=== PATIENT | female | born 2000 | race Caucasian/White ===

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

== ENCOUNTER 2019-01-06 21:21 | Observation (INO) | payer OTHER ==
[2019-01-06] MEDS ORDERED: Ketorolac INJ* 30 MG/ML 1 ML VIAL IV PUSH ONE (21:40)
--- NOTE | 2019-01-06 21:45 | ED ---
HPI Chest Pain - HPI Summary HPI Summary: This patient is a 18 year old female [facility] by friends with a chief complaint of rib and chest pain since 30 minutes ago. Patient states that she has had costochondritis for a long time now, but that it has not bothered her immensely. The pain usually lasts for one or two breaths and improves. However, today, patient notes that the pain is ongoing, pleuritic, and persisting. Pain was sudden onset and began while patient was sitting in bed. The pain is rated 6/10 in severity. Symptoms aggravated by nothing. Symptoms alleviated by nothing. Patient additionally notes back pain. - History of Current Complaint Time Seen by Provider: 01/06/19 21:35 Hx Obtained From: Patient Hx Last Menstrual Period: 11/19/18 Onset/Duration: Still Present Timing: Constant Current Severity: Moderate Pain Intensity: 6 Pain Scale Used: 0-10 Numeric Chest Pain Location: Mid Sternal Chest Pain Radiates: Yes Chest Pain Radiates To:: Back Aggravating Factor(s): Nothing Alleviating Factor(s): Nothing Associated Signs and Symptoms: Positive: Other: - back pain - Allergy/Home Medications Allergies/Adverse Reactions: Allergies Allergy/AdvReac Type Severity Reaction Status Date / Time No Known Allergies Allergy Verified 01/06/19 21:39 Home Medications: Home Medications Robaxin 500 MG TAB* 1,000 mg PO SEE INSTRUCTIONS PRN 01/07/19 [History Confirmed 01/07/19] PMH/Surg Hx/FS Hx/Imm Hx Previously Healthy: No Endocrine/Hematology History: Denies: Hx Diabetes Cardiovascular History: Reports: Other Cardiovascular Problems/Disorders - slightly dilated descending aorta, last ECHO 08/2018, Marfanoid traits Denies: Hx Hypertension Respiratory History: Denies: Hx Asthma Musculoskeletal History: Reports: Other Musculoskeletal History - Marfanoid sx Sensory History: Reports: Hx Contacts or Glasses Opthamlomology History: Reports: Hx Contacts or Glasses - Surgical History Surgery Procedure, Year, and Place: None reported Infectious Disease History: No Infectious Disease History: Denies: Traveled Outside the [place] in Last 30 Days - Family History Known Family History: Positive: Other - Marfan syndrome, father of aortic dissection at age 31 - Social History Occupation: Student Lives: Dormitory/Roommates Alcohol Use: None Hx Substance Use: No Substance Use Type: Reports: None Hx Tobacco Use: No Smoking Status (MU): Never Smoked Tobacco Review of Systems Negative: Fever Positive: Chest Pain Positive: Other - rib pain All Other Systems Reviewed And Are Negative: Yes Physical Exam - Summary Physical Exam Summary: Appearance: Well-appearing, Well-nourished, lying in bed comfortably Skin: Warm, dry, no obvious rash Eyes: sclera anicteric, no conjunctival pallor ENT: mucous membranes moist, pharynx appears normal Neck: Supple, nontender Respiratory: Clear to auscultation, no signs of respiratory distress Cardiovascular: Normal S1, S2. No murmurs. Normal distal pulses in tibial and radial bilaterally. Abdomen: Soft, nontender, normal active bowel sounds present Musculoskeletal: Left sided costochondral tenderness Neurological: A&Ox3, awake and alert, mentation is normal, speech is fluent and appropriate Psychiatric: affect is normal, appears mildly apprehensive, but no acute distress Triage Information Reviewed: Yes Vital Signs On Initial Exam: Initial Vitals Pulse Resp BP Pulse Ox 97 19 122/76 100 01/06/19 21:35 01/06/19 21:35 01/06/19 21:35 01/06/19 21:35 Vital Signs Reviewed: Yes Diagnostics - Vital Signs Vital Signs Temp Pulse Resp BP Pulse Ox 01/06/19 21:36 100.6 F 96 22 122/76 100 01/06/19 21:35 97 19 122/76 100 - Laboratory Result Diagrams: 01/06/19 21:50 01/06/19 21:50 Lab Statement: Any lab studies that have been ordered have been reviewed, and results considered in the medical decision making process. - Radiology CXR Radiology Interpretation Completed By: ED Physician Summary of Radiographic Findings: CXR reveals, per ED physician, scoliosis, but no acute process in chest. Pending official report. - CT CTA Chest/Thorax CT Interpretation Completed By: Radiologist Summary of CT Findings: CTA Chest/Thorax reveals, per radiologist, IMPRESSION: Small volume pulmonary emboli burden to the segmental level with associated inferior lingular pulmonary infarct and small left effusion. No right heart strain. ED physician has reviewed this radiology report. - EKG 2130 Cardiac Rate: NL EKG Rhythm: Sinus Rhythm - 78 BPM Summary of EKG Findings: An EKG, taken 2130, reveals NSR (78 BPM), P waves, QRS complex, and T waves are within normal limits, T waves and intervals are normal , no ischemic changes. This is a normal EKG. Chest Pain Course/Dx - Course Course Of Treatment: This patient is a 18 year old female presenting to [facility] accompanied by friends with a chief complaint of rib and chest pain since 30 minutes ago. Patient states that she has had costochondritis for a long time now , but that it has not bothered her immensely. The pain usually lasts for one or two breaths and improves. However, today, patient notes that the pain is ongoing and persisting. An EKG, taken 2130, reveals NSR (78 BPM), P waves, QRS complex, and T waves are within normal limits, T waves and intervals are normal , no ischemic changes. This is a normal EKG. CXR reveals, per ED physician, scoliosis, but no acute process in chest. Pending official report. CTA Chest/ Thorax reveals, per radiologist, IMPRESSION: Small volume pulmonary emboli burden to the segmental level with associated inferior lingular pulmonary infarct and small left effusion. No right heart strain. ED physician has reviewed this radiology report. Bloodwork Obtained. We discussed patient care with Dr. Patterson (Hospitalist) at 0050 and they agreed to admit the patient. Patient will be admitted with a dx of pulmonary emboli. The patient is agreeable with this plan. - Diagnoses Provider Diagnoses: Pulmonary emboli - Provider Notifications Discussed Care Of Patient With: Marino Patterson - Hospitalist Time Discussed With Above Provider: 00:50 - . We discussed patient care with Dr. Patterson (Hospitalist) at 0050 and they agreed to admit the patient. Discharge - Sign-Out/Discharge Documenting (check all that apply): Patient Departure Patient Received Moderate/Deep Sedation with Procedure: No - Discharge Plan Condition: Stable Disposition: ADMITTED TO [facility] Referrals: No Primary Care Phys,NOPCP [Primary Care Provider] - - Attestation Statements Document Initiated by Scribe: Yes Documenting Scribe: Erica Mckenzie Provider For Whom Tavia is Documenting (Include Credential): Nir Holt MD Scribe Attestation: Erica Robertson, scribed for Nir Holt MD on 01/07/19 at 0128. Status of Scribe Document: Ready
[2019-01-06 22:04] LABS: ABS Lymphocytes 1.4 10^3/ul (1.0-4.8); ABS Monocytes 0.9 10^3/ul (0-0.8); ABS Neutrophils 3.7 10^3/ul (1.5-7.7); Eosinophil % 0.3 %; Hematocrit 36 % (35-47); Hemoglobin 12.4 g/dL (12.0-16.0); Lymphocyte % 23.1 %; Mean Corpuscular HGB Conc 34 g/dL (31-36); Mean Corpuscular Hemoglobin 30 pg (27-31); Mean Corpuscular Volume 89 fL (80-97); Platelet Count 174 10^3/uL (150-450); Red Blood Count 4.06 10^6 /uL (3.70-4.87); Red Cell Distribution Width 13 % (10.5-15)
[2019-01-06 22:15] LABS: ALT 9 U/L (7-52); AST 15 U/L (13-39); Albumin 4.3 g/dL (3.2-5.2); Albumin/Globulin Ratio 1.5 (1-3); Alkaline Phosphatase 45 U/L (34-104); Anion Gap 7 mmol/L (2-11); BUN/Creatinine Ratio 14.3 (8-20); Blood Urea Nitrogen 9 mg/dL (6-24); CO2 Carbon Dioxide 24 mmol/L (22-32); Calcium 9.5 mg/dL (8.6-10.3); Chloride 105 mmol/L (101-111); EGFR African American 147.3 (>60); EGFR Non-African American 121.7 (>60); Globulin 2.9 g/dL (2-4); Glucose 91 mg/dL (70-100); Potassium 3.8 mmol/L (3.5-5.0); Sodium 136 mmol/L (135-145); Total Protein 7.2 g/dL (6.4-8.9)
[2019-01-06 22:22] LABS: HCG Pregnancy < 0.60 mIU/mL
[2019-01-06] MEDS ORDERED: Iohexol 350* (CONTRAST) 500 ML MDV IV ONE (23:24)
[2019-01-07] MEDS ORDERED: Acetaminophen TAB* 325 MG PO PRN (01:00)
[2019-01-07] MEDS ORDERED: Enoxaparin(*) 60 MG/0.6 ML SYR SUBCUT SCH (01:00)
--- NOTE | 2019-01-07 03:53 | HP ---
History of Present Illness - History of Present Illness Reason for Visit: chest pain History of Present Illness: PCP: [facility] HPI: Patient is a 18 year old [employer] student with Marfan's syndrome, who has had intermittent fleeting left-sided chest pain for about 1 month. The pain is rated around 8/10, but lasts just a few seconds, can be relieved by a deep breath. She describes it as sharp, stabbing. The day of admission she had the same pain, but it persisted for 30 minutes, had no relieving factors. Her roommate convinced her to come to the ER. She was in the ER on 11/22 with a different chest pain, burning, precordial. She was concerned about aortic dissection and had a negative CTA chest at that time. Patient denies any family history of DVT/PE. She does endorse long bus rides, as she is on the crew team at , is traveling to meets all over the [facility]. - Past Medical History Cardiac: Other - Marfan's syndrome Psych: Depression, Other - ADD Musculoskeletal: Other - scoliosis Grav: 0 Para: 0 - Past Surgical History Past Surgical History: None - Past Family History Family History: Other - Father age 31 of TAA/Marfan's, mother is well, only child - Past Social History Occupation: student at , anthropology Alcohol: Occassional - none for few months, in "dry season" Drugs: None Lives: Roommate, Other - Mother is Gisela, she is a PA in [place] Domestic Violence: Negative Review of Systems - Measurements Intake and Output: Intake and Output Last 24 Hours 01/04/19 01/05/19 01/06/19 01/07/19 06:59 06:59 06:59 06:59 Weight 65.771 kg - Review of Systems Constitutional Symptoms: Negative: Weight Gain, Fever Dermatology: Positive: Normal HEENT: Positive: Normal Eyes: Positive: Normal Thyroid: Positive: Normal Pulmonary: Negative: Cough, Hemoptysis, Shortness of Breath Cardiology: Positive: Chest Pain Negative: Shortness of Breath, Palpitations, Peripheral Vascular Dis, Edema, Claudication Gastroenterology: Positive: Normal Genital - Urinary: Positive: Normal Genitourinay - Female: Positive: Menses Normal, Other - IUD placed 1 year ago Musculoskeletal: Positive: Joint Pain Endocrinology: Positive: Normal Hematologic/Lymphatic: Negative: Use of Anticoagulant Neurology: Positive: Normal Psychiatry: Positive: Normal Allergic/Immunologic: Negative: Hx Anaphylaxis Objective Active Medications: Acetaminophen (Tylenol Tab*) 650 mg PO Q4H PRN PRN Reason: FEVER/HEADACHE Amphetamine/Dextroamphetamine (Adderall Tab*) 10 mg PO DAILY RK Fluoxetine HCl (Prozac Cap*) 60 mg PO DAILY RK Losartan Potassium (Cozaar Tab*) 12.5 mg PO DAILY RK IUD - Kyleena Vital Signs - 8 hr 01/06/19 01/06/19 01/06/19 22:05 22:35 23:00 Temperature Pulse Rate 76 76 73 Respiratory 24 17 24 Rate Blood Pressure 113/71 112/68 (mmHg) O2 Sat by Pulse 98 97 96 Oximetry 01/06/19 01/06/19 01/07/19 23:05 23:36 02:03 Temperature 37.7 C Pulse Rate 69 79 Respiratory 29 22 Rate Blood Pressure 110/59 110/66 (mmHg) O2 Sat by Pulse 98 99 Oximetry 01/07/19 02:51 Temperature 37.0 C Pulse Rate 75 Respiratory 17 Rate Blood Pressure 107/64 (mmHg) O2 Sat by Pulse 98 Oximetry Oxygen Devices in Use Now: None Appearance: alert, no distress Eyes: No Scleral Icterus Ears/Nose/Mouth/Throat: NL Teeth, Lips, Gums Neck: NL Appearance and Movements; NL JVP, Trachea Midline Respiratory: Symmetrical Chest Expansion and Respiratory Effort, Clear to Auscultation Cardiovascular: NL Sounds; No Murmurs; No JVD, RRR Abdominal: NL Sounds; No Tenderness; No Distention, No Hepatosplenomegaly Lymphatic: No Cervical Adenopathy Extremities: No Edema Skin: No Rash or Ulcers Neurological: Alert and Oriented x 3, NL Sensation, NL Muscle Strength and Tone , - - scoliosis present Lines/Tubes/Other Access: Clean, Dry and Intact Peripheral IV Nutrition: Taking PO's Result Diagrams: 01/06/19 21:50 01/06/19 21:50 Additional Lab and Data: Laboratory Tests 01/06/19 01/06/19 01/06/19 21:50 21:50 21:50 D-Dimer, Quantitative 240 H Glucose 91 Lactic Acid 0.7 AST 15 ALT 9 Troponin I 0.00 Albumin 4.3 Beta HCG, Quant < 0.60 Diagnostic Imaging: CTA chest: several small PEs in LLL, pulmonary infarct in lingula Assess/Plan/Problems-Billing Assessment: 18 year old with pulmonary embolism and infarction - Patient Problems (1) Pulmonary embolism and infarction Current Visit: Yes Status: Acute Priority: High Code(s): I26.99 - OTHER PULMONARY EMBOLISM WITHOUT ACUTE COR PULMONALE SNOMED Code(s): 2339365782156 Comment: -Patient will be admitted to observation, assessed for any cardiopulmonary instability -Started on Lovenox, can be discharged in <24 hours on Eliquis BID if stable -No clear inciting factor, though estrogen-containing IUD should be removed. Long bus trips are also a factor -Sent testing for Factor V Leiden, Prothrombin 35216 gene mutation, Protein S, Protein C, AT3. -Advised to see business relationship manager in [facility] in 1-2 months, consider stopping anticoagulation in 3-6 months (2) IUD complication Current Visit: Yes Status: Acute Priority: Medium Code(s): T83.9XXA - UNSP COMPLICATION OF GENITOURINARY PROSTH DEV/GRFT, INIT SNOMED Code(s): 055049178 Comment: -Can have IUD removed in 3-4 weeks, at home in [facility], or at [facility] (3) Marfan syndrome Current Visit: Yes Status: Acute Priority: Low Code(s): Q87.40 - MARFAN'S SYNDROME, UNSPECIFIED SNOMED Code(s): 13432555 Comment: -I do not see any connection between the PE and Marfan's Counseling and/or Coordination of Care Minutes: Spoke with mother at
[2019-01-07] MEDS ORDERED: FLUoxetine CAP* 20 MG PO SCH (09:00)
[2019-01-07] MEDS ORDERED: Amphetamine MIXED SALT TAB* 10 MG TAB PO SCH (09:00)
[2019-01-07] MEDS ORDERED: Losartan TAB* 25 MG PO SCH (09:00)
[2019-01-07] MEDS ORDERED: Apixaban* 5 MG TAB PO SCH (09:31)
[2019-01-07] MEDS ORDERED: Ketorolac INJ* 15 MG/ML 1 ML VIAL IV PUSH ONE (09:32)
[2019-01-07 14:47] VITALS: BP 108/67
--- NOTE | 2019-01-07 22:45 | DS ---
CC: Dr. Mandeep Warren * DISCHARGE SUMMARY: DATE OF ADMISSION: 01/07/19 DATE OF DISCHARGE: 01/07/19 PRIMARY CARE PROVIDER: Dr. Mandeep Warren, [place], [place]. ATTENDING PHYSICIAN: Kendra Samuels MD * (dictated by Debbie Monroy NP). PRIMARY DIAGNOSIS: Pulmonary embolism. SECONDARY DIAGNOSES: 1. Marfan syndrome. 2. Presence of intrauterine device. STUDIES WHILE IN THE HOSPITAL: 1. EKG on 01/06/19 shows normal sinus rhythm with a rate of 78, QTc 425. No ischemic changes. 2. Chest x-ray on 01/06/19 reads as possible small focal pneumonia at the inferior most aspect of the left upper lobe. S-shaped scoliosis. 3. Chest-thorax CTA on 01/06/19 reads as small volume pulmonary emboli burden to the segmental level with associated inferior lingular pulmonary infarct and small left effusion. No right heart strain. HISTORY OF PRESENT ILLNESS AND HOSPITAL COURSE: Ms. Ladd is a 18-year-old female with past medical history of Marfan syndrome, who presented to the emergency room on 01/06/19 with complaints of chest pain. Please see the history and physical by Dr. Patterson for a complete summary of the events leading up to this hospitalization. In short, the patient is a student at [employer], originally from [place]. She had reported intermittent chest pain for approximately 1 month. The pain is typically an 8/10, lasting just a few seconds , though on the day of admission the pain lasted 30 minutes, hence her presenting to the emergency room. In the emergency room, she had a CBC and BMP which were unremarkable. She had a D-dimer which was elevated at 240 and for that reason and her heart symptomatology, CTA was completed as noted above, which revealed small burden PE. The patient was admitted by the hospitalist service. She was started on therapeutic dosing of Lovenox. A hypercoagulability workup was sent out and is pending at the time of this dictation. The patient was monitored in telemetry overnight, without any evidence of arrhythmias and vital signs remained stable. The patient did receive a dose of Toradol in the emergency room, which was quite effective at relieving her pain. When I spoke with the patient this morning, she reported that she still had pain with movement, although was comfortable while sitting and speaking with me. She does note that the pain today has significantly improved from the pain yesterday. During the most painful episode yesterday, she reports that she was unable to speak because she was in so much pain and overall she felt much better. The patient is anxious to be discharged from the hospital as she is a student at [employer] and this week is the finals week. I did speak at length with the patient about her diagnosis and the need for anticoagulation. The patient was agreeable to starting oral anticoagulation at this time. There was some concern on admission due to the presence of a hormonal IUD. At this point, I cannot find any evidence linking IUD to thrombotic events, though I did discuss this with the patient that ultimately the IUD may need to be removed. She did not want it removed at this time. The patient's mother resides in [place] and is a physician's sales service assistant. I did have a long conversation with her over the phone, outlining the patient's diagnosis and treatment going forward. The patient's mother is also agreeable to her starting anticoagulation and would like her to be placed on Eliquis. The patient's mother will speak with her OB-STRUCTURAL STEEL WORKER APPRENTICE to determine if the IUD needs to be removed. There is no obvious connection between Marfan syndrome and pulmonary embolism, so it is unclear if this was a provoked or unprovoked PE at this point. The patient does take long bus trips somewhat frequently as she participates in college athletics. So, this could have been a precipitating factor, but again, a hypercoagulability workup is pending at this time. I did speak with the patient and her mother about pain management going forward. The patient's mother wanted to avoid any narcotics and I think that is certainly reasonable at this point and it was agreed upon that the patient would take ibuprofen and Tylenol for pain management going forward. I will also note that the patient takes dextroamphetamine for ADHD and there is a black box warning for this medication in people who have Marfan syndrome. I did speak with the patient's mother about this and she has advised that the patient's tube teller cleared her to be on this medication. On exam, the patient has no focal neurological deficits. Her heart has regular rate and rhythm, without murmurs, rubs or gallops. Lung sounds are clear to auscultation. She is saturating well on room air. Ms. Ladd is stable for discharge today. Vital signs are as follows: Temp 98.5, heart rate 87, respiratory rate 16, oxygen saturation 99% on room air, blood pressure 108/67. DISCHARGE MEDICATIONS: New medications: 1. Eliquis 10 mg p.o. b.i.d. for 7 days, then 5 mg b.i.d. 2. Acetaminophen 650 mg p.o. q.4 hours p.r.n. pain. 3. Ibuprofen 600 mg p.o. q.6 hours p.r.n. pain x2 days. Continued medications: 1. Adderall 10 mg p.o. daily. 2. Fluoxetine 60 mg p.o. daily. 3. Losartan 12.5 mg p.o. daily. 4 Robaxin 1000 mg p.o. daily p.r.n. pain. DISCHARGE PLAN: Ms. Ladd will be discharged home. Activity will be as tolerated. I have advised the patient that she should avoid any strenuous activities for the next few weeks. 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 So, I have advised her that she may resume this as long as she feels comfortable. Diet will be regular, as tolerated. Medications are noted above. The patient has been placed on Eliquis. She will need to take 10 mg b.i.d. for 7 days. She did receive her first dose of it here this morning and will need to take another 10 mg b.i.d., tonight and then for another 6 days. Thereafter, she can transition to 5 mg b.i.d. She will need to remain on anticoagulation for at least 3 months, although I will defer to her primary care physician for further medication management. The patient has been advised that she can take ibuprofen for pain, but should not take this for more than 2 days as she is taking Eliquis. She can also take acetaminophen for pain. She can resume her other usual medications and I have not made any further changes. As noted above, the patient's IUD will remain in place at that time after conversation with the patient and her mother. I will defer further management of this to the patient's OB-STRUCTURAL STEEL WORKER APPRENTICE at home in [place]. The patient will need to follow up with her primary care provider within the next 1 to 2 weeks. She will be flying back to [place] this week after her finals. She should return to the emergency room or nearest hospital for any worsening of symptoms, shortness of breath, lightheadedness, dizziness, chest discomfort, high fevers, chills, night sweats , loss of consciousness or any worrisome signs or symptoms. DISCHARGE CONDITION: Stable. DISCHARGE DISPOSITION: Home. This is a summarized report of a complex medical history and hospital stay. For further details, please see the entire medical record. TIME SPENT: Approximately 50 minutes were spent on this discharge. DEBBIE MONROY, SHAPER OPERATOR [id number]/CPS #: [id number] ABBIE
== END 2019-01-07 15:15 | disposition home or self-care (01) ==
LOC: ED 21:21 → MEDTELE 01-07 00:56
PROVIDERS: ADMIT Internal Medicine; ATTEND Internal Medicine
DX: I26.99 Other pulmonary embolism without acute cor pulmonale (principal); Q87.40 Marfan syndrome, unspecified; Z97.5 Presence of (intrauterine) contraceptive device; Z79.01 Long term (current) use of anticoagulants; R07.9 Chest pain, unspecified; M54.9 Dorsalgia, unspecified
CPT/HCPCS: 36415; 71046; 71275; 80053; 81240; 81241; 83090; 83605; 84484; 84702; 85025; 85220; 85300; 85302; 85303; 85306; 85379; 85610; 85613; 85730; 93005; 96372; 96374; 99284; A9270-GY; G0378; J1650; J1885; Q9967

== ENCOUNTER 2019-01-09 18:27 | Emergency (ER) | payer OTHER ==
[2019-01-09 20:09] LABS: ABS Lymphocytes 1.4 10^3/ul (1.0-4.8); ABS Monocytes 0.7 10^3/ul (0-0.8); Eosinophil % 0.5 %; Hematocrit 35 % (35-47); Hemoglobin 12.3 g/dL (12.0-16.0); Lymphocyte % 22.5 %; Mean Corpuscular HGB Conc 35 g/dL (31-36); Mean Corpuscular Hemoglobin 31 pg (27-31); Mean Corpuscular Volume 89 fL (80-97); Mean Platelet Volume 7.8 fL (7.4-10.4); Nucleated Red Blood Cells % 0.1; Platelet Count 186 10^3/uL (150-450); Red Blood Count 3.96 10^6 /uL (3.70-4.87); Red Cell Distribution Width 13 % (10.5-15); White Blood Count 6.1 10^3/uL (3.5-10.8)
[2019-01-09 20:19] LABS: Activated Partial Thrombo Time 31.9 seconds (26.0-36.3); INR 1.52 (0.82-1.09)
[2019-01-09 20:20] LABS: Albumin/Globulin Ratio 1.2 (1-3); BUN/Creatinine Ratio 17.6 (8-20); C Reactive Protein 114.72 mg/L (<8.01); Calcium 9.2 mg/dL (8.6-10.3); EGFR African American 134.9 (>60); EGFR Non-African American 111.5 (>60); Globulin 3.4 g/dL (2-4); Potassium 3.5 mmol/L (3.5-5.0); Total Bilirubin 0.4 mg/dL (0.2-1.0); Total Protein 7.4 g/dL (6.4-8.9)
[2019-01-09] MEDS ORDERED: DOXYcycline CAP(*) 100 MG PO ONE (20:58)
--- NOTE | 2019-01-09 21:03 | ED ---
HPI Febrile Illness - HPI Summary HPI Summary: Patient with history of recent admission to [facility] for PE and discharge 01/07 complains of worsening SOB since discharge and fever up to 102. Patient taking Eliquis. Fevers are intermittent, controlled with Tylenol. Denies headache, ear pain, sore throat, cough, neck stiffness, CP, N/V/D, abdominal pain, change in urine, change in BM. Medical history is Marfan's, PE. - History of Current Complaint Chief Complaint: EDShortnessOfBreath Time Seen by Provider: 01/09/19 19:27 Hx Obtained From: Patient Hx Last Menstrual Period: 11/19/18 Onset/Duration: Started Days Ago Timing: Intermittent Current Severity: None Pain Intensity: 0 Pain Scale Used: 0-10 Numeric Aggravating Factors: Nothing Alleviating Factors: Nothing Associated Signs and Symptoms: SOB - Additional Pertinent History Primary Care Physician: [id number] - Allergy/Home Medications Allergies/Adverse Reactions: Allergies Allergy/AdvReac Type Severity Reaction Status Date / Time No Known Allergies Allergy Verified 01/06/19 21:39 PMH/Surg Hx/FS Hx/Imm Hx Endocrine/Hematology History: Denies: Hx Diabetes Cardiovascular History: Reports: Other Cardiovascular Problems/Disorders - slightly dilated descending aorta, last ECHO 08/2018, Marfanoid traits Denies: Hx Hypertension, Hx Peripheral Vascular Disease Respiratory History: Denies: Hx Asthma History: Denies: Hx Dialysis Musculoskeletal History: Reports: Other Musculoskeletal History - Marfanoid sx Sensory History: Reports: Hx Contacts or Glasses - glasses and contacts Denies: Hx Hearing Aid Opthamlomology History: Reports: Hx Contacts or Glasses - glasses and contacts EENT History: Denies: Hx Deafness Neurological History: Denies: Hx Dementia Psychiatric History: Denies: Hx Autism - Surgical History Surgery Procedure, Year, and Place: None reported Infectious Disease History: No Infectious Disease History: Denies: Traveled Outside the [place] in Last 30 Days - Family History Known Family History: Positive: Other - Marfan syndrome, father of aortic dissection at age 31 - Social History Occupation: Student Alcohol Use: Occasionally Hx Substance Use: No Substance Use Type: Reports: None Hx Tobacco Use: No Smoking Status (MU): Never Smoked Tobacco Review of Systems Positive: Fever Eyes: Negative ENT: Negative Cardiovascular: Negative Positive: Shortness Of Breath Gastrointestinal: Negative Genitourinary: Negative Musculoskeletal: Negative Skin: Negative Neurological: Negative Psychological: Normal All Other Systems Reviewed And Are Negative: Yes Physical Exam - Summary Physical Exam Summary: Lung sounds clear to auscultation bilaterally. RRR. Abdomen soft nontender. ENT exam unremarkable. Triage Information Reviewed: Yes Vital Signs On Initial Exam: Initial Vitals Temp Pulse Resp BP Pulse Ox 98.3 F 109 18 120/77 100 01/09/19 18:29 01/09/19 18:29 01/09/19 18:29 01/09/19 18:29 01/09/19 18:29 Vital Signs Reviewed: Yes Appearance: Positive: Well-Appearing Skin: Positive: Warm Head/Face: Positive: Normal Head/Face Inspection Eyes: Positive: Normal ENT: Positive: Normal ENT inspection Neck: Positive: Supple Respiratory/Lung Sounds: Positive: Clear to Auscultation Cardiovascular: Positive: Normal Abdomen Description: Positive: Nontender Musculoskeletal: Positive: Normal Neurological: Positive: Normal Psychiatric: Positive: Normal AVPU Assessment: Alert - Julee Coma Scale Best Eye Response: 4 - Spontaneous Best Motor Response: 6 - Obeys Commands Best Verbal Response: 5 - Oriented Coma Scale Total: 15 Diagnostics - Vital Signs Vital Signs Temp Pulse Resp BP Pulse Ox 01/09/19 18:29 98.3 F 109 18 120/77 100 - Laboratory Lab Results: Lab Results 01/09/19 01/09/19 01/09/19 Range/Units 19:30 19:30 19:30 WBC 6.1 (3.5-10.8) 10^3/uL RBC 3.96 (3.70-4.87) 10^6 /uL Hgb 12.3 (12.0-16.0) g/dL Hct 35 (35-47) % MCV 89 (80-97) fL MCH 31 (27-31) pg MCHC 35 (31-36) g/dL RDW 13 (10.5-15) % Plt Count 186 (150-450) 10^3/uL MPV 7.8 (7.4-10.4) fL Neut % (Auto) 65.5 % Lymph % (Auto) 22.5 % [place] % (Auto) 11.2 % Eos % (Auto) 0.5 % Baso % (Auto) 0.3 % Absolute Neuts (auto) 4.0 (1.5-7.7) 10^3/ul Absolute Lymphs (auto) 1.4 (1.0-4.8) 10^3/ul Absolute Monos (auto) 0.7 (0-0.8) 10^3/ul Absolute Eos (auto) 0.0 (0-0.6) 10^3/ul Absolute Basos (auto) 0.0 (0-0.2) 10^3/ul Absolute Nucleated RBC 0.0 10^3/ul Nucleated RBC % 0.1 INR (Anticoag Therapy) 1.52 H (0.82-1.09) APTT 31.9 (26.0-36.3) seconds Sodium 136 (135-145) mmol/L Potassium 3.5 (3.5-5.0) mmol/L Chloride 103 (101-111) mmol/L Carbon Dioxide 25 (22-32) mmol/L Anion Gap 8 (2-11) mmol/L BUN 12 (6-24) mg/dL Creatinine 0.68 (0.51-0.95) mg/dL Est GFR ( Amer) 134.9 (>60) Est GFR (Non-Af Amer) 111.5 (>60) BUN/Creatinine Ratio 17.6 (8-20) Glucose 89 (70-100) mg/dL Calcium 9.2 (8.6-10.3) mg/dL Total Bilirubin 0.40 (0.2-1.0) mg/dL AST 13 (13-39) U/L ALT 9 (7-52) U/L Alkaline Phosphatase 47 (34-104) U/L Troponin I (<0.04) ng/mL C-Reactive Protein 114.72 H (<8.01) mg/L Total Protein 7.4 (6.4-8.9) g/dL Albumin 4.0 (3.2-5.2) g/dL Globulin 3.4 (2-4) g/dL Albumin/Globulin Ratio 1.2 (1-3) 01/09/19 Range/Units 19:30 WBC (3.5-10.8) 10^3/uL RBC (3.70-4.87) 10^6 /uL Hgb (12.0-16.0) g/dL Hct (35-47) % MCV (80-97) fL MCH (27-31) pg MCHC (31-36) g/dL RDW (10.5-15) % Plt Count (150-450) 10^3/uL MPV (7.4-10.4) fL Neut % (Auto) % Lymph % (Auto) % [place] % (Auto) % Eos % (Auto) % Baso % (Auto) % Absolute Neuts (auto) (1.5-7.7) 10^3/ul Absolute Lymphs (auto) (1.0-4.8) 10^3/ul Absolute Monos (auto) (0-0.8) 10^3/ul Absolute Eos (auto) (0-0.6) 10^3/ul Absolute Basos (auto) (0-0.2) 10^3/ul Absolute Nucleated RBC 10^3/ul Nucleated RBC % INR (Anticoag Therapy) (0.82-1.09) APTT (26.0-36.3) seconds Sodium (135-145) mmol/L Potassium (3.5-5.0) mmol/L Chloride (101-111) mmol/L Carbon Dioxide (22-32) mmol/L Anion Gap (2-11) mmol/L BUN (6-24) mg/dL Creatinine (0.51-0.95) mg/dL Est GFR ( Amer) (>60) Est GFR (Non-Af Amer) (>60) BUN/Creatinine Ratio (8-20) Glucose (70-100) mg/dL Calcium (8.6-10.3) mg/dL Total Bilirubin (0.2-1.0) mg/dL AST (13-39) U/L ALT (7-52) U/L Alkaline Phosphatase (34-104) U/L Troponin I 0.00 (<0.04) ng/mL C-Reactive Protein (<8.01) mg/L Total Protein (6.4-8.9) g/dL Albumin (3.2-5.2) g/dL Globulin (2-4) g/dL Albumin/Globulin Ratio (1-3) Result Diagrams: 01/09/19 19:30 01/09/19 19:30 Lab Statement: Any lab studies that have been ordered have been reviewed, and results considered in the medical decision making process. Course/Dx - Course Course Of Treatment: Patient with history of recent admission to [facility] for PE and discharge 5/5 complains of worsening SOB since discharge and fever up to 102. Patient taking Eliquis. Fevers are intermittent, controlled with Tylenol. Denies headache, ear pain, sore throat, cough, neck stiffness, CP, N/V/D, abdominal pain, change in urine, change in BM. Medical history is Marfan's, PE. Physical exam:Lung sounds clear to auscultation bilaterally. RRR. Abdomen soft nontender. ENT exam unremarkable. Vital signs within normal limits. CRP 114. Labs otherwise unremarkable. Chest x-ray positive for left lower lobe infiltrate. Diagnosis pneumonia. Currently taking Augmentin from counts include [facility] beds at the [facility] care. Continue to take Tylenol for fever control. Patient understands and approves of plan. - Diagnoses Provider Diagnoses: Pneumonia Discharge - Sign-Out/Discharge Documenting (check all that apply): Patient Departure Patient Received Moderate/Deep Sedation with Procedure: No - Discharge Plan Condition: Stable Disposition: HOME Patient Education Materials: Pneumonia (ED) Referrals: No Primary Care Phys,NOPCP [Primary Care Provider] - Additional Instructions: Take antibiotics as directed. Follow-up with primary care. Return to the ED for any new or worsening symptoms. - Billing Disposition and Condition Condition: STABLE Disposition: Home
[2019-01-09 21:18] VITALS: BP 110/71
== END 2019-01-09 21:18 | disposition home or self-care (01) ==
LOC: ED 18:27
DX: J18.9 Pneumonia, unspecified organism (principal); I77.819 Aortic ectasia, unspecified site; R91.8 Other nonspecific abnormal finding of lung field; Z86.711 Personal history of pulmonary embolism
CPT/HCPCS: 36415; 71046; 80053; 84484; 85025; 85610; 85730; 86140; 93005; 99282; A9270-GY